=== PATIENT | male | born 1970 | race African-American/Black ===

== ENCOUNTER 2024-04-09 09:37 | Inpatient (IN) | payer BC ==
[~2024-04-09] VITALS: Ht 172.7 cm; Wt 79.8 kg
[2024-04-09 10:56] LABS: BASOPHILS % 0.6 % (0.0-2.0); EOSINOPHILS % 3.7 % (0.0-5.0); HEMATOCRIT. 37.5 % (42.0-52.0); HEMOGLOBIN. 11.8 g/dL (14.0-18.0); LYMPHOCYTES % 22.2 % (20.0-50.0); MEAN CORPUSCULAR HEMOGLOBIN 27.1 pg (28.0-32.0); MEAN CORPUSCULAR HGB CONC 31.6 g/dL (31.0-37.0); MEAN CORPUSCULAR VOLUME 85.8 fL (80.0-94.0); MEAN PLATELET VOLUME 8.5 fl (7.4-10.4); MONOCYTES % 5.1 % (2.0-8.0); NEUTROPHILS % 68.4 % (40.0-76.0); PLATELET 266 x1000/uL (130-400); RED BLOOD CELL COUNT 4.38 mill/uL (4.7-6.1); WHITE BLOOD COUNT 8.4 x1000/uL (4.5-11.0)
[2024-04-09 11:13] LABS: CHLORIDE 104 mEq/L (98-107); SODIUM 139 mEq/L (136-145)
[2024-04-09 11:14] LABS: CALCIUM 9.3 mg/dL (8.7-10.4); CARBON DIOXIDE 28 mEq/L (21-32)
[2024-04-09] MEDS: PIPERACILLIN/TAZO 3.375G/50ML 50 ML IV ONE (11:15)
[2024-04-09 11:19] LABS: CREATININE 1.2 mg/dL (0.6-1.3); GLUCOSE 123 mg/dL (70-105); UREA NITROGEN BLOOD 18 mg/dL (9-23)
[2024-04-09] MEDS: VANCOMYCIN 1G PREMIX 200 ML IV ONE (11:31)
[2024-04-09] MEDS: LOSARTAN 25 MG TABLET PO SCH (13:30)
[2024-04-09 13:55] VITALS: BP 144/87; PULSE 87; RESP 20; TEMP 98.5
[2024-04-09] MEDS ORDERED: DEXTROSE 50% WATER 50ML SYRINGE IV PRN (15:00)
[2024-04-09 16:00] VITALS: BP 155/86; PULSE 76; RESP 20; TEMP 97.2
[2024-04-09] MEDS: BLOOD SUGAR DIAGNOSTIC STRIP TEST SCH (17:00)
[2024-04-09] MEDS: INSULIN LISPRO 100 UNITS/ML SUBCUT SCH (18:20)
[2024-04-09 20:00] VITALS: BP 153/77; PULSE 80; RESP 20; TEMP 97.5
[2024-04-09] MEDS: VANCOMYCIN 750MG/150ML (BAXTER) IV SCH (21:38)
[2024-04-09 22:28] LABS: TROPONIN I HIGH SENSITIVITY 4 ng/L (3.0-53)
[2024-04-09] MEDS: PIPERACILLIN/TAZO 3.375G/50ML 50 ML IV SCH (23:22)
[2024-04-10] VITALS: BP 138/48; PULSE 67; RESP 18; TEMP 97.3
[2024-04-10 04:00] VITALS: BP 122/65; PULSE 72; RESP 18; TEMP 97.3
[2024-04-10 06:52] LABS: CHLORIDE 103 mEq/L (98-107); POTASSIUM 3.9 mEq/L (3.5-5.1); SODIUM 139 mEq/L (136-145)
[2024-04-10 06:53] LABS: CALCIUM 9.3 mg/dL (8.7-10.4); CARBON DIOXIDE 28 mEq/L (21-32)
[2024-04-10 06:58] LABS: CREATININE 1.2 mg/dL (0.6-1.3); GLUCOSE 132 mg/dL (70-105); TRIGLYCERIDE 111 mg/dL (0-150); TROPONIN I HIGH SENSITIVITY 5 ng/L (3.0-53); UREA NITROGEN BLOOD 16 mg/dL (9-23)
[2024-04-10 06:59] LABS: LDL CHOLESTEROL 103 mg/dL (5-100)
[2024-04-10 07:00] LABS: CHOLESTEROL 150 mg/dL (<200); HDL CHOLESTEROL 35 mg/dL (>55)
[2024-04-10 07:02] LABS: T4 FREE 1.23 ng/dL (0.89-1.76); THYROID STIMULATING HORMONE 1.25 uIU/mL (0.55-4.78)
[2024-04-10 07:12] LABS: BASOPHILS % 0.5 % (0.0-2.0); EOSINOPHILS % 3.2 % (0.0-5.0); HEMATOCRIT. 36.3 % (42.0-52.0); HEMOGLOBIN. 11.7 g/dL (14.0-18.0); LYMPHOCYTES % 17.1 % (20.0-50.0); MEAN CORPUSCULAR HEMOGLOBIN 27.4 pg (28.0-32.0); MEAN CORPUSCULAR HGB CONC 32.3 g/dL (31.0-37.0); MEAN CORPUSCULAR VOLUME 84.9 fL (80.0-94.0); MEAN PLATELET VOLUME 8.7 fl (7.4-10.4); MONOCYTES % 5.7 % (2.0-8.0); NEUTROPHILS % 73.5 % (40.0-76.0); PLATELET 243 x1000/uL (130-400); RED BLOOD CELL COUNT 4.27 mill/uL (4.7-6.1); RED CELL DISTRIBUTION WIDTH 14.1 % (11.6-14.6); WHITE BLOOD COUNT 10.2 x1000/uL (4.5-11.0)
[2024-04-10 08:00] VITALS: BP 138/67; PULSE 73; RESP 19; TEMP 97.8
[2024-04-10] MEDS: GABAPENTIN 100MG CAPSULE PO SCH (08:39)
[2024-04-10] MEDS ORDERED: LIDOCAINE HCL/EPINEPHRINE 1%-EPI 1:100,000 20 ML VIAL INFIL NR (11:30)
[2024-04-10 12:00] VITALS: BP 131/79; PULSE 70; RESP 18; TEMP 96.8
[2024-04-10 16:00] VITALS: BP 134/75; PULSE 81; RESP 18; TEMP 96.7
[2024-04-10 20:00] VITALS: BP 142/72; PULSE 80; RESP 18; TEMP 96.8
[2024-04-11] VITALS: BP 145/81; PULSE 78; RESP 18; TEMP 96.6
[2024-04-11 04:00] VITALS: BP 117/74; PULSE 76; RESP 19; TEMP 96.9
[2024-04-11 07:25] LABS: CHLORIDE 103 mEq/L (98-107); POTASSIUM 3.9 mEq/L (3.5-5.1); SODIUM 137 mEq/L (136-145)
[2024-04-11 07:26] LABS: CALCIUM 9.1 mg/dL (8.7-10.4); CARBON DIOXIDE 26 mEq/L (21-32)
[2024-04-11 07:31] LABS: CREATININE 1.2 mg/dL (0.6-1.3); GLUCOSE 192 mg/dL (70-105); UREA NITROGEN BLOOD 11 mg/dL (9-23)
[2024-04-11 08:00] VITALS: BP 155/80; PULSE 74; RESP 18; TEMP 97.8
[2024-04-11 12:00] VITALS: BP 150/76; PULSE 82; RESP 18; TEMP 97.8
[2024-04-11] MEDS: ACETAMINOPHEN 325MG TABLET PO PRN (14:32)
[2024-04-11 16:00] VITALS: BP 140/59; PULSE 67; RESP 18; TEMP 97.3
[2024-04-11 20:00] VITALS: BP 139/45; PULSE 76; RESP 18; TEMP 97.7
[2024-04-11] MEDS: VANCOMYCIN 750MG/150ML (BAXTER) IV SCH (20:49)
[2024-04-12] VITALS: BP 134/81; PULSE 82; RESP 19; TEMP 97.7
[2024-04-12 04:00] VITALS: BP 123/64; PULSE 70; RESP 18; TEMP 97.7
[2024-04-12 08:00] VITALS: BP 123/70; PULSE 70; RESP 17; TEMP 97.7
[2024-04-12 12:00] VITALS: BP 145/70; PULSE 72; RESP 18; TEMP 97.9
[2024-04-12 16:00] VITALS: BP 130/75; PULSE 72; RESP 19; TEMP 97.3
[2024-04-12 20:00] VITALS: BP 145/71; PULSE 85; RESP 18; TEMP 97.8
[2024-04-13 04:00] VITALS: BP 124/82; PULSE 74; RESP 19; TEMP 97.5
[2024-04-13 08:00] VITALS: BP 125/56; PULSE 75; RESP 20; TEMP 98
[2024-04-13 12:00] VITALS: BP 143/71; PULSE 77; RESP 16; TEMP 97.8
[2024-04-13 16:00] VITALS: BP 150/59; PULSE 63; RESP 19; TEMP 98
[2024-04-13 20:00] VITALS: BP 148/64; PULSE 69; RESP 19; TEMP 97.5
[2024-04-14] VITALS: BP 128/41; PULSE 68; RESP 19; TEMP 97.9
[2024-04-14 04:00] VITALS: BP 125/51; PULSE 76; RESP 20; TEMP 98.8
[2024-04-14 08:00] VITALS: BP 155/61; PULSE 70; RESP 20; TEMP 97.4
[2024-04-14 11:31] LABS: HEMATOCRIT 35.1 % (42.0-52.0); HEMOGLOBIN 11.4 g/dL (14.0-18.0); MEAN CORPUSCULAR HEMOGLOBIN 27.7 pg (28.0-32.0); MEAN CORPUSCULAR HGB CONC 32.5 g/dL (31.0-37.0); MEAN CORPUSCULAR VOLUME 85.4 fL (80.0-94.0); PLATELET 250 x1000/uL (130-400); RED BLOOD CELL COUNT 4.12 mill/uL (4.7-6.1); RED CELL DISTRIBUTION WIDTH 13.9 % (11.6-14.6); WHITE BLOOD COUNT 8.5 x1000/uL (4.5-11.0)
[2024-04-14 12:00] VITALS: BP 159/56; PULSE 73; RESP 20; TEMP 97
[2024-04-14] MEDS ORDERED: LIDOCAINE HCL 1% 10 MG/ML 10ML VIAL ONE (12:18)
[2024-04-14] MEDS ORDERED: DOXY150T5 PO (14:54)
[2024-04-14] MEDS ORDERED: AMOX1TAB16 PO (14:54)
[2024-04-14] MEDS ORDERED: PANT40TA51 MT (14:54)
[2024-04-14 16:00] VITALS: BP 153/82; PULSE 75; RESP 20; TEMP 97.5
[2024-04-14 20:00] VITALS: BP 137/78; PULSE 76; RESP 18; TEMP 97.7
[2024-04-15] VITALS: BP 109/59; PULSE 69; RESP 18; TEMP 97.1
[2024-04-15 04:00] VITALS: BP 133/59; PULSE 73; RESP 18; TEMP 97.1
[2024-04-15 08:00] VITALS: BP 116/59; PULSE 71; RESP 20; TEMP 97.7
[2024-04-15 12:00] VITALS: BP 132/71; PULSE 73; RESP 20; TEMP 97.3
[2024-04-15 14:27] VITALS: BP 132/77; PULSE 73; TEMP 97.3; O2SAT 99
== END 2024-04-15 20:37 | disposition home or self-care (01) | DRG 264 ==
LOC: ER 09:37 → EDBEDREQ 12:42 → EDBEDREQTM 12:42 → 5WST 13:19 → 6WST 13:42
PROVIDERS: ADMIT Preventive Medicine Clinical Informatics; ATTEND Preventive Medicine Clinical Informatics
PROC: 0JBQ0ZZ Excision of Right Foot Subcutaneous Tissue and Fascia, Open Approach (ICD-10-PCS; principal; 2024-04-10)
DX: E11.52 Type 2 diabetes mellitus with diabetic peripheral angiopathy with gangrene (principal); T79.7XXA Traumatic subcutaneous emphysema, initial encounter; M86.8X7 Other osteomyelitis, ankle and foot; E11.69 Type 2 diabetes mellitus with other specified complication; E11.621 Type 2 diabetes mellitus with foot ulcer; I10 Essential (primary) hypertension; D64.9 Anemia, unspecified; B35.1 Tinea unguium; L98.494 Non-pressure chronic ulcer of skin of other sites with necrosis of bone; L97.519 Non-pressure chronic ulcer of other part of right foot with unspecified severity; H54.62 Unqualified visual loss, left eye, normal vision right eye; E11.42 Type 2 diabetes mellitus with diabetic polyneuropathy; W18.39XA Other fall on same level, initial encounter; L03.031 Cellulitis of right toe; S90.121A Contusion of right lesser toe(s) without damage to nail, initial encounter; Y93.89 Activity, other specified; Y92.89 Other specified places as the place of occurrence of the external cause; Y99.8 Other external cause status; Z79.84 Long term (current) use of oral hypoglycemic drugs; Z79.899 Other long term (current) drug therapy
CPT/HCPCS: 36415; 36573; 73630; 73660; 73718; 80048; 80061; 80202; 82962; 83036; 83605; 84145; 84439; 84443; 84484; 85025; 85027; 85651; 93923; 99285; C1725; J1815; J2543; J3370; J3490